=== PATIENT | female | born 1990 | race Caucasian/White ===

== ENCOUNTER 2017-02-09 23:19 | Emergency (ER) | payer OTHER ==
--- NOTE | 2017-02-09 23:29 | EDPHY ---
H & P Time Seen by Provider: 02/09/17 23:24 HPI/ROS: Chief complaint: Frequency of urination History of present illness: Patient states that she started having frequency of urination and as well as some dysuria since late last night early this morning. She has noticed some blood in her urine as well. She denies fever, chills, nausea, vomiting, low back pain, suprapubic pain or vaginal discharge. She denies having a urinary tract infection in the past. She is sexually active but has an IUD and doubts she is . REVIEW OF SYSTEMS: Constitutional: No fever, no chills. Eyes: No discharge. ENT: No sore throat. Respiratory: No cough, no shortness of breath. Cardiac: No chest pain, no palpitations. Gastrointestinal: No abdominal pain, no vomiting. Genitourinary: No discharge. Musculoskeletal: No back pain. Skin: No rashes. Neurological: No headache. Past Medical/Surgical History: Past medical history: Denied Past surgical history: IUD Family history: Denied No known drug allergies Medications: None Primary Care: The patient goes to the [facility] and sees a physician graduate teaching assistant, Alexandra Social History: No tobacco products, daily alcohol, no marijuana use Smoking Status: Never smoked Physical Exam: General: Alert and oriented x3, in mild distress Skin: Warm, dry, intact, no rash HEENT: Normocephalic, atraumatic, pupils equally round reactive to light, extraocular muscles intact, oral mucosa moist Neck: Supple, full range of motion, trachea midline Cardiovascular: Regular rate and rhythm, no murmurs, gallops, or rubs Pulmonary: Clear to auscultation bilaterally, no rales, rhonchi, or wheezing Back: No CVA tenderness to palpation Abdomen: Soft, nontender, nondistended : Pelvic deferred Extremities: No clubbing, cyanosis or edema Neuro: Nonfocal exam Constitutional: Initial Vital Signs Temperature (C) 97.7 F 02/09/17 23:28 Heart Rate 65 02/09/17 23:28 Respiratory Rate 16 02/09/17 23:28 Blood Pressure 111/72 02/09/17 23:28 O2 Sat (%) 100 02/09/17 23:28 O2 Delivery Mode Room Air Allergies/Adverse Reactions: No Known Allergies Allergy (Unverified 02/09/17 23:36) Home Medications: Medication Instructions Recorded Nitrofurantoin Monohyd/M-Cryst 100 mg PO BID #14 capsule 02/10/17 [Macrobid 100 mg Capsule] Phenazopyridine HCl [Pyridium] 200 mg PO TID #6 tab 02/10/17 Medical Decision Making ED Course/Re-evaluation: The patient was seen and examined. Vital signs were reviewed. Old records were reviewed. Urine test was negative. Urinalysis was suggestive of a UTI with 2+ LE and 5-10 WBCs. Urine culture is pending. Patient was given Pyridium and Macrobid with prescriptions for same. She will follow up with her primary care provider if symptoms persist. She understands that a urine culture is pending that may necessitate changing antibiotics. She also understands that she may need to have a pelvic exam if symptoms do not resolve. She should return to the emergency room if symptoms change or worsen as discussed. Differential Diagnosis: Differential diagnosis includes but is not limited to: UTI, hemorrhagic cystitis, pyelonephritis, interstitial cystitis, bacterial vaginosis, sexually transmitted infection - Data Points Laboratory Results: 02/09/17 02/09/17 23:25 23:25 Urine Color COLORLESS Urine Appearance CLEAR Urine pH 7.0 (5.0-7.5) Ur Specific [place] <= 1.005 (1.002-1.030) Urine Protein NEGATIVE (NEGATIVE) Urine Ketones NEGATIVE (NEGATIVE) Urine Blood 3+ H (NEGATIVE) Urine Nitrate NEGATIVE (NEGATIVE) Urine Bilirubin NEGATIVE (NEGATIVE) Urine Urobilinogen 0.2 EU EU (0.2-1.0) Ur Leukocyte Esterase 2+ H (NEGATIVE) Urine RBC 0-1 /hpf /hpf (0-3) Urine WBC 10-15 /hpf H /hpf (0-3) Ur Epithelial Cells NONE SEEN /lpf /lpf (NONE-1+) Urine Glucose NEGATIVE (NEGATIVE) Urine Test NEGATIVE Medications Given: Discontinued Medications Nitrofurantoin (Macrobid 100mg Prepack#2) 1 btl TAKEHOME EDNOW ONE PRN Reason: Protocol Stop: 02/09/17 23:57 Last Admin: 02/10/17 00:05 Dose: 1 btl Phenazopyridine HCl (Pyridium) 200 mg PO EDNOW ONE Stop: 02/09/17 23:41 Last Admin: 02/09/17 23:44 Dose: 200 mg Phenazopyridine HCl (Pyridium) 200 mg PO EDNOW ONE Stop: 02/09/17 23:57 Last Admin: 02/10/17 00:07 Dose: 200 mg Departure - Departure Disposition: Home, Routine, Self-Care Clinical Impression: UTI (urinary tract infection) Condition: Good Instructions: Nitrofurantoin (By mouth), Phenazopyridine (By mouth), Urinary Tract Infection in Women (ED) Additional Instructions: [facility]he[facility] with [facility] if symptoms persist or return to the ER sooner if worse. Referrals: Patient,NotPresent [Primary Care Provider] - As per Instructions Prescriptions: Nitrofurantoin Monohyd/M-Cryst [Macrobid 100 mg Capsule] 100 mg PO BID #14 capsule Phenazopyridine HCl [Pyridium] 200 mg PO TID #6 tab
[2017-02-09 23:31] LABS: LEUKOCYTE ESTERASE,URINE 2+ (NEGATIVE); NITRITE,URINE NEGATIVE (NEGATIVE)
[2017-02-09 23:32] VITALS: BP 111/72; PULSE 65; RESP 16; TEMP 97.7; O2SAT 100
[2017-02-09 23:32] LABS: COLOR COLORLESS
[2017-02-09 23:40] LABS: RBC,URINE 0-1 /hpf (0-3)
[2017-02-09] MEDS ORDERED: PHENAZOPYRIDINE HCL 200 MG TAB PO ONE ×2 (23:40→23:56)
[2017-02-09] MEDS ORDERED: NITROFURANTOIN 100MG PREPACK#2 BTL TAKEHOME ONE (23:56)
== END 2017-02-10 00:20 | disposition home or self-care (01) ==
LOC: CED 23:19
DX: N39.0 Urinary tract infection, site not specified (principal); B96.89 Other specified bacterial agents as the cause of diseases classified elsewhere
CPT/HCPCS: 81003-PO; 81015-PO; 81025-PO